=== PATIENT | male | born 1960 | race Caucasian/White ===

== ENCOUNTER → 2021-03-16 10:33 | Outpatient (BNVA) | payer MEDICARE, MEDICAID, SELFPAY | PROVIDERS: PCP Internal Medicine; Visit Provider Hospitalist | DX: J41.0 Simple chronic bronchitis (principal); R91.8 Other nonspecific abnormal finding of lung field; G47.33 Obstructive sleep apnea (adult) (pediatric); Z99.89 Dependence on other enabling machines and devices; F17.200 Nicotine dependence, unspecified, uncomplicated | CPT/HCPCS: 99212 ==

== ENCOUNTER 2021-05-22 12:47 | Outpatient (REF) | payer MEDICARE, MEDICAID, SELFPAY ==
--- NOTE | ~2021-05-22 | CT_ITS ---
EXAMINATION: CT CHEST SCREENING CLINICAL INFORMATION: Nicotine dependence. COMPARISON: CT chest 12/10/2019 TECHNIQUE: Multidetector volumetric CT imaging of the chest is performed without contrast using low dose technique. Additional 2-D coronal and sagittal reformatted images and axial 3-D maximum intensity projection (MIP) images are generated on the CT workstation. This CT examination was performed using dose optimization techniques as appropriate, variously including the following: *Automated exposure control *Adjustment of mA and/or kV according to patient size (this includes techniques or standardized protocols for targeted exams where dose is matched to indication/reason for exam; i.e. extremities or head) *Use of iterative reconstruction technique DLP: 63 mGy-cm FINDINGS: LUNGS: The lungs are expanded and clear of acute process. Previously seen 3 mm nodule left upper lobe is not visualized at this time. No additional pulmonary nodules, mass or consolidation seen. MEDIASTINUM: There is trace left coronary artery calcification. The heart size and great vessels are normal caliber. There is no pericardial effusion. The central trachea and bronchi are widely patent. Thyroid lobes are symmetrical and normal. PLEURA: There is no pleural effusion. No pleural mass or thickening. AXILLA: No lymphadenopathy. UPPER ABDOMEN: The visualized liver, spleen, pancreas, and bilateral adrenal glands are unremarkable. The gallbladder has been surgically removed. OSSEOUS STRUCTURES: No lytic or sclerotic process seen. There is mild ventral spondylosis mid and lower dorsal spine. CT/CT lung screening IMPRESSION: Expanded lungs without any acute process seen. ASSESSMENT: Lung-RADS category 1: Negative RECOMMENDATION: Low-dose annual CT chest exam.
== END 2021-05-22 12:48 | disposition home or self-care (01) ==
LOC: HO.CT 12:47
PROVIDERS: PCP Internal Medicine; Visit Provider Physician Assistant Medical
DX: Z12.2 Encounter for screening for malignant neoplasm of respiratory organs (principal); F17.200 Nicotine dependence, unspecified, uncomplicated
CPT/HCPCS: 71271

== ENCOUNTER 2022-02-19 14:40 | Outpatient (REF) | payer MEDICARE, MEDICAID, SELFPAY ==
--- NOTE | 2022-02-19 17:31 | PFT_ITS ---
Forced vital capacity 61%. FEV1 72%. FEV1/FVC ratio is 89. [id number] 109% and MVV is 46%. Post bronchodilator therapy, there is only minimal improvement in FVC and [id number]. Total lung capacity is 83%. Residual volume 124%. Diffusion capacity 98%. CONCLUSION: There is possible mild restrictive pulmonary disorder. No significant obstructive disorder. However, some improvement after bronchodilator therapy may suggest a mild degree of bronchial asthma/reactive airways. For this, clinical correlation is recommended. MVV is markedly decreased and that is probably effort related and may be due to muscle weakness. For this also, clinical correlation is recommended. MD NANNETTE Gillespie/MODL / [id number]
== END 2022-02-19 14:41 | disposition home or self-care (01) ==
LOC: HO.RESP 14:40
PROVIDERS: PCP Internal Medicine; Visit Provider Internal Medicine Pulmonary Disease
DX: J44.9 Chronic obstructive pulmonary disease, unspecified (principal)
CPT/HCPCS: 94060; 94727; 94729

== ENCOUNTER → 2022-03-02 14:29 | Outpatient (BNVA) | payer MEDICARE, MEDICAID, SELFPAY | PROVIDERS: PCP Internal Medicine; Visit Provider Hospitalist | DX: J41.0 Simple chronic bronchitis (principal); R91.8 Other nonspecific abnormal finding of lung field; G47.33 Obstructive sleep apnea (adult) (pediatric); Z99.89 Dependence on other enabling machines and devices; F17.200 Nicotine dependence, unspecified, uncomplicated | CPT/HCPCS: 99212 ==

== ENCOUNTER → 2022-09-17 09:47 | Outpatient (BNVA) | payer MEDICARE, MEDICAID, SELFPAY | PROVIDERS: PCP Internal Medicine; Visit Provider Hospitalist | DX: J41.0 Simple chronic bronchitis (principal); R91.8 Other nonspecific abnormal finding of lung field; G47.33 Obstructive sleep apnea (adult) (pediatric); F17.210 Nicotine dependence, cigarettes, uncomplicated; Z99.89 Dependence on other enabling machines and devices | CPT/HCPCS: 99212 ==

== ENCOUNTER 2022-12-14 12:56 | Outpatient (REF) | payer MEDICARE, MEDICAID, SELFPAY ==
--- NOTE | ~2022-12-14 | CT_ITS ---
EXAMINATION: CT CHEST SCREENING, LOW DOSE CLINICAL INFORMATION: Nicotine dependence. 35 pack year smoking history, one pack per day, current smoker. COMPARISON: CT chest 05/22/2021. TECHNIQUE: Multidetector volumetric CT imaging of the chest is performed without contrast using low dose technique. Additional 2D coronal and sagittal reformatted images and axial 3D maximum intensity projection (MIP) images are generated on the CT workstation. This CT examination was performed using dose optimization techniques as appropriate, variously including the following: *Automated exposure control *Adjustment of mA and/or kV according to patient size (this includes techniques or standardized protocols for targeted exams where dose is matched to indication/reason for exam; i.e. extremities or head) *Use of iterative reconstruction technique DLP: 130 mGy-cm FINDINGS: LUNGS: The lungs are well-expanded and clear of acute process. There are no pulmonary nodules, mass or consolidation. MEDIASTINUM: The thyroid lobes are symmetric and normal. The central trachea and the bronchi are widely patent. The heart size and the great vessels are normal caliber. There is no pedicle effusion. No abnormal mediastinal or hilar lymph nodes seen. CORONARY ARTERY CALCIFICATION: Mild coronary artery calcifications are present. PLEURA: There is no pleural effusion. No pleural mass or thickening. AXILLA: No abnormal size axillary lymph nodes seen. There is mild asymmetry of the chest wall but otherwise unremarkable. UPPER ABDOMEN: Visualized liver, spleen, pancreas and adrenal glands are unremarkable. There are multiple surgical clips adjacent to the GE junction along the right subhepatic region from previous intervention. OSSEOUS STRUCTURES: There is mild ventral spondylosis mid and lower dorsal spine. CT/CT lung screening IMPRESSION: Unremarkable CT chest exam. ASSESSMENT: Lung-RADS category 2: Benign RECOMMENDATION: Low-dose annual CT chest followup.
== END 2022-12-14 12:57 | disposition home or self-care (01) ==
LOC: HO.CT 12:56
PROVIDERS: PCP Internal Medicine; Visit Provider Physician Assistant Medical
DX: Z12.2 Encounter for screening for malignant neoplasm of respiratory organs (principal); F17.210 Nicotine dependence, cigarettes, uncomplicated
CPT/HCPCS: 71271

== ENCOUNTER 2023-03-18 09:37 | Outpatient (AMB) | payer MEDICARE, MEDICAID, SELFPAY ==
--- NOTE | 2023-03-18 09:56 | A.OFFVIS_ITS ---
Intake Vital Signs 03/18/23 09:58 Height 5 ft 3 in Weight 213 lb BMI 37.7 Pulse 74 Pulse Source Pulse Oximeter Pulse Oximetry (%) 96 Oxygen Delivery Method Room Air Intake Visit Reasons: copd [employer] Worker Required: No Allergies Alphagan Allergy (Severe, Uncoded 03/18/23 09:59) Burning Eyes and Skin Dorzolamide Allergy (Severe, Uncoded 03/18/23 09:59) Anaphylaxis Simbrinzal Allergy (Severe, Uncoded 03/18/23 09:59) Anaphylaxis HPI HPI Comments History of Present Illness Details The patient is a 63-year-old gentleman with a known history of tobacco dependency, COPD and also obstructive sleep apnea. The CPAP therapy has been very effective beneficial. I did download the machine and he is using it for more than 4 hours a night. He has been maintaining AHI around 2. He has been getting supplies for his CPAP regularly without any difficulties. In regards of the smoking his trying to cut down. Is been hard for him to do so. Although, I did review his CT scan of the chest that he had for the lung cancer screening and I explained to him that he had pulmonary nodules. For that reason more reason he is to quit because of the risk of cancer will continue getting worse the more he smokes. He continues uses respiratory therapy with good effect. He has not had to use any prednisone or any antibiotics at this time. 03/18/2023 The patient is here for pulmon mariya follow-up visit. Overall the patient is doing well. He continues uses rescue inhaler as needed. Has not had to use it much. Unfortunately continues to smoke cigarettes. He is not ready to quit completely. He is participating in the lung cancer screening program. He had a CT chest 12/2022. It was read as a RADS 2, benign.. The patient continues uses CPAP every night. Tolerating the higher APAP 10-20. [facility] Medical History (Updated 12/20/22 @ 07:49 by Daylin Pretty PA-C) Nicotine dependence, cigarettes, uncomplicated REYNA on CPAP Pulmonary nodules COPD (chronic obstructive pulmonary disease) Social History (Updated 03/16/21 @ 10:52 by NAZIA Aldana) Patient Tobacco Use Status: Current everyday Tobacco user Tobacco use type: Cigarette Years Smoked: 16 years old Review of Systems Const Denies night sweats ENT Denies change in voice, Denies lip swelling, Denies mouth pain, Reports nasal congestion, Reports nasal discharge and Denies tongue swelling Card Denies chest pain Resp Reports cough GI Denies abdominal pain Musc Denies no additional complaints Neuro Denies Neuro-related abnormal movements Psych Denies no additional complaints Maximino/Lymph Denies easy bleeding and Denies lymphadenopathy Aller/Immun Denies lip swelling and Denies tongue swelling Physical Exam Vital Signs: Last Vital Signs Pulse 74 03/18/23 09:58 Pulse Ox 96 03/18/23 09:58 Oxygen Delivery Method Room Air 03/18/23 09:58 BMI result Body Mass Index 37.7 Const General: alert Neck Neck: Yes normal visual inspection, Yes full ROM and Yes no lymphadenopathy Chest Chest palpation & inspection: normal inspection of the chest Resp Auscultation: no rales, no rhonchi and diminished lung sounds Cardio Rate: regular rate Rhythm: regular rhythm Heart sounds: S1 normal heart sound present and S2 normal heart sound present GI Palpation (GI): Soft to palpation and nontender Auscultation: normal bowel sounds Skin General skin exam: rashes and/or lesions noted Assessment & Plan Assessment & Plan (1) COPD (chronic obstructive pulmonary disease): Comment: Continue respiratory therapy Code(s): J44.9 - Chronic obstructive pulmonary disease, unspecified Qualifiers: COPD type: chronic bronchitis Chronic bronchitis type: simple Qualified Code(s): J41.0 - Simple chronic bronchitis (2) Pulmonary nodules: Comment: Scheduled CT scan to the lung cancer screening program Code(s): R91.8 - Other nonspecific abnormal finding of lung field (3) REYNA on CPAP: Code(s): G47.33 - Obstructive sleep apnea (adult) (pediatric); Z99.89 - Dependence on other enabling machines and devices Plan: Continue CPAP therapy (4) Tobacco dependence: Code(s): F17.200 - Nicotine dependence, unspecified, uncomplicated Plan Short-acting beta agonist as needed tobacco cessation, cutting down lung cancer screening program, 12/2022 continue APAP at night, adjusted pressures 10-20 follow-up in 6 months Orders: Referrals Thoracic Surgery Referral F17.210 - Nicotine dependence, cigarettes, uncomplicated Quality Reporting (2019) Adult ([facility] 138/2/) Smoking risk assessment performed?: Yes Patient Tobacco Use Status: Current everyday Tobacco user Coding Level of Care Code Est Pt Level 4 (90155) Diagnoses Simple chronic bronchitis J41.0 COPD type: chronic bronchitis Chronic bronchitis type: simple Pulmonary nodules R91.8 REYNA on CPAP G47.33; Z99.89 Tobacco dependence F17.200 Time Spent (min) 16
[2023-03-18 09:58] VITALS: PULSE 74; O2SAT 96; BMI 37.7
== END 2023-03-18 10:09 | disposition home or self-care (01) ==
PROVIDERS: PCP Internal Medicine; Visit Provider Hospitalist
DX: J41.0 Simple chronic bronchitis (principal); R91.8 Other nonspecific abnormal finding of lung field; G47.33 Obstructive sleep apnea (adult) (pediatric); Z99.89 Dependence on other enabling machines and devices; F17.200 Nicotine dependence, unspecified, uncomplicated
CPT/HCPCS: 99214

== ENCOUNTER → 2023-03-18 09:37 | Outpatient (BNVA) | payer MEDICARE, MEDICAID, SELFPAY | PROVIDERS: PCP Internal Medicine; Visit Provider Hospitalist | DX: J41.0 Simple chronic bronchitis (principal); R91.8 Other nonspecific abnormal finding of lung field; G47.33 Obstructive sleep apnea (adult) (pediatric); F17.210 Nicotine dependence, cigarettes, uncomplicated; Z99.89 Dependence on other enabling machines and devices | CPT/HCPCS: 99212 ==

== ENCOUNTER 2023-09-20 10:10 | Outpatient (AMB) | payer MEDICARE, MEDICAID, SELFPAY ==
--- NOTE | 2023-09-20 10:26 | MHC.OFFVIS ---
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 The CPAP therapy has been very effective beneficial. I did download the machine and he is using it for more than 4 hours a night. He has been maintaining AHI around 2. He has been getting supplies for his CPAP regularly without any difficulties. In regards of the smoking his trying to cut down. Is been hard for him to do so. Although, I did review his CT scan of the chest that he had for the lung cancer screening and I explained to him that he had pulmonary nodules. For that reason more reason he is to quit because of the risk of cancer will continue getting worse the more he smokes. He continues uses respiratory therapy with good effect. He has not had to use any prednisone or any antibiotics at this time. 03/18/2023 The patient is here for pulmonary follow-up visit. Overall the patient is doing well. He continues uses rescue inhaler as needed. Has not had to use it much. Unfortunately continues to smoke cigarettes. He is not ready to quit completely. He is participating in the lung cancer screening program. He had a CT chest 12/2022. It was read as a RADS 2, benign.. The patient continues uses CPAP every night. Tolerating the higher APAP 10-20. 09/20/2023 the patient is here for a pulmonary follow-up visit. Overall he is doing well. He has using the CPAP every night the CPAP therapy has been affecting beneficial. And his AHI is around 3. The patient unfortunately is getting an adverse effect from the fullface mask where he is getting ulceration of the nasal bridge. I did provide him with an F30 medium mask that he will try to see if this is more comfortable for him so we can avoid further injury to that also. The patient understands that the pressure also continued to get worse if he continues to press on too much. If he does not tolerate the F30 mask we can consider a foam mask which will be little more comfortable. His cutting down smoking which is reassuring and he is also due for CT scan of the chest to the lung cancer screening in the fall of 2023. The patient will continue his current respiratory therapy which includes albuterol. Otherwise patient is doing well in follow-up in 6-8 months. [facility] [place] Medical History (Updated 12/20/22 @ 07:49 by Daylin Pretty PA-C) Nicotine dependence, cigarettes, uncomplicated REYNA on CPAP Pulmonary nodules COPD (chronic obstructive pulmonary disease) Social History (Updated 03/16/21 @ 10:52 by NAZIA Aldana) Patient Tobacco Use Status: Current everyday Tobacco user Tobacco use type: Cigarette Years Smoked: 16 years old Review of Systems Const Denies night sweats ENT Denies change in voice, Denies lip swelling, Denies mouth pain, Reports nasal congestion, Reports nasal discharge and Denies tongue swelling Card Denies chest pain Resp Reports cough GI Denies abdominal pain Musc Denies no additional complaints Neuro Denies Neuro-related abnormal movements Psych Denies no additional complaints Maximino/Lymph Denies easy bleeding and Denies lymphadenopathy Aller/Immun Denies lip swelling and Denies tongue swelling Physical Exam Vital Signs: Last Vital Signs Pulse 57 09/20/23 10:28 Pulse Ox 97 09/20/23 10:28 Oxygen Delivery Method Room Air 09/20/23 10:28 BMI result Body Mass Index 37.4 Const General: alert Neck Neck: Yes normal visual inspection, Yes full ROM and Yes no lymphadenopathy Chest Chest palpation & inspection: normal inspection of the chest Resp Effort & Inspection: normal respiratory effort Auscultation: no rales, no rhonchi and diminished lung sounds Cardio Rate: regular rate Rhythm: regular rhythm Heart sounds: S1 normal heart sound present and S2 normal heart sound present GI Palpation (GI): Soft to palpation and nontender Auscultation: normal bowel sounds Skin General skin exam: no rashes or lesions noted Extrem General: Yes no clubbing, cyanosis or edema Quality Reporting (2019) Adult ([facility] 138/2/22/69) Smoking risk assessment performed?: Yes Patient Tobacco Use Status: Current everyday Tobacco user Assessment & Plan Assessment & Plan (1) COPD (chronic obstructive pulmonary disease): Comment: Continue respiratory therapy Code(s): J44.9 - Chronic obstructive pulmonary disease, unspecified Category: Medical Qualifiers: COPD type: chronic bronchitis Chronic bronchitis type: simple Qualified Code(s): J41.0 - Simple chronic bronchitis (2) Pulmonary nodules: Comment: Scheduled CT scan to the lung cancer screening program Code(s): R91.8 - Other nonspecific abnormal finding of lung field Category: Medical (3) REYNA on CPAP: Code(s): G47.33 - Obstructive sleep apnea (adult) (pediatric); Z99.89 - Dependence on other enabling machines and devices Category: Medical Plan: Continue CPAP therapy (4) Tobacco dependence: Code(s): F17.200 - Nicotine dependence, unspecified, uncomplicated Category: Medical Plan Short-acting beta agonist as needed tobacco cessation, cutting down lung cancer screening program, 12/2023 continue APAP at night, adjusted pressures 10-20 follow-up in 6-8 months Coding Level of Care Code Est Pt Level 4 (90570) Diagnoses Simple chronic bronchitis J41.0 COPD type: chronic bronchitis Chronic bronchitis type: simple Pulmonary nodules R91.8 REYNA on CPAP G47.33; Z99.89 Tobacco dependence F17.200 Time Spent (min) 16
[2023-09-20 10:28] VITALS: PULSE 57; O2SAT 97; BMI 37.4
== END 2023-09-20 10:42 | disposition home or self-care (01) ==
PROVIDERS: PCP Internal Medicine; Visit Provider Hospitalist
DX: J41.0 Simple chronic bronchitis (principal); R91.8 Other nonspecific abnormal finding of lung field; G47.33 Obstructive sleep apnea (adult) (pediatric); Z99.89 Dependence on other enabling machines and devices; F17.200 Nicotine dependence, unspecified, uncomplicated
CPT/HCPCS: 99214

== ENCOUNTER → 2023-09-20 10:10 | Outpatient (BNVA) | payer MEDICARE, MEDICAID, SELFPAY | PROVIDERS: PCP Internal Medicine; Visit Provider Hospitalist | DX: J41.0 Simple chronic bronchitis (principal); R91.8 Other nonspecific abnormal finding of lung field; G47.33 Obstructive sleep apnea (adult) (pediatric); F17.200 Nicotine dependence, unspecified, uncomplicated; Z99.89 Dependence on other enabling machines and devices | CPT/HCPCS: 99212 ==

== ENCOUNTER 2024-01-09 15:01 | Outpatient (REF) | payer MEDICARE, MEDICAID, SELFPAY ==
--- NOTE | ~2024-01-09 | CT_ITS ---
EXAMINATION: CT LOW-DOSE SCREENING CHEST WITHOUT CONTRAST CLINICAL INFORMATION: Nicotine dependence, cigarettes, uncomplicated. The patient is a current smoker with a 35 pack-year history of smoking. COMPARISON: CT chest December 14, 2022. TECHNIQUE: Multidetector volumetric CT imaging of the chest is performed on a Siemens SOMATOM Definition scanner without contrast using low dose technique. Additional 2D coronal and sagittal reformatted images and axial 3D maximum intensity projection (MIP) images are generated on the CT workstation. This CT examination was performed using dose optimization techniques as appropriate, variously including the following: *Automated exposure control *Adjustment of mA and/or kV according to patient size (this includes techniques or standardized protocols for targeted exams where dose is matched to indication/reason for exam; i.e. extremities or head) *Use of iterative reconstruction technique TOTAL EXAM DLP: 61 mGy-cm. CTDIvol: 1.91 mGy. FINDINGS: PULMONARY NODULES: No suspicious pulmonary nodules. LUNGS: Lungs bilaterally symmetrically expanded. No significant emphysema. Some mild bronchial thickening. No effusion or pneumothorax. Central airways patent. MEDIASTINUM: No mediastinal, hilar or axillary adenopathy or free fluid collection. CORONARY ARTERY CALCIFICATION: Moderate. THYROID GLAND: Unremarkable to the extent seen. CARDIOVASCULAR STRUCTURES: Aortic and heart size normal. No pericardial effusion. CHEST WALL/AXILLA: Unremarkable. UPPER ABDOMEN: Multiple surgical clips around the cosme hepatis and gastrohepatic ligament. OSSEOUS STRUCTURES: No suspicious focal findings. CT/CT lung screening IMPRESSION: No findings seen suspicious for malignancy. ASSESSMENT: 1. Lung-RADS Category 1: Negative. There are no nodules or there are definitely benign nodules. N/A 2. Lung-RADS Category S: Negative. There are no clinically significant or potentially clinically significant findings not related to the lungs requiring urgent additional evaluation. RECOMMENDATION: Continued routine annual low-dose CT lung screening in 1 year is recommended. An order for CT CHEST LOW DOSE CANCER SCREENING ([id number]) can be placed. Electronically signed by: Martin Cooney MD 02/28/2024 05:11 PM [facility] [place]
== END 2024-01-09 15:02 | disposition home or self-care (01) ==
LOC: HO.CT 15:01
PROVIDERS: PCP Internal Medicine; Visit Provider Physician Assistant Medical
DX: Z12.2 Encounter for screening for malignant neoplasm of respiratory organs (principal); F17.210 Nicotine dependence, cigarettes, uncomplicated
CPT/HCPCS: 71271

== ENCOUNTER 2024-05-25 09:19 | Outpatient (AMB) | payer MEDICARE, MEDICAID, SELFPAY ==
--- NOTE | 2024-05-25 09:23 | MHC.OFFVIS ---
Vital Signs 05/25/24 09:26 Height 5 ft 3 in Weight 211 lb 10.3 oz BMI 37.5 BP 132/76 Blood Pressure Location Rt brachial Position Sitting Pulse 63 Pulse Source Pulse Oximeter Pulse Oximetry (%) 98 Oxygen Delivery Method Room Air Intake Visit Reasons: COPD Allergies Alphagan Allergy (Severe, Uncoded 05/25/24 09:31) Burning Eyes and Skin Dorzolamide Allergy (Severe, Uncoded 05/25/24 09:31) Anaphylaxis Simbrinzal Allergy (Severe, Uncoded 05/25/24 09:31) Anaphylaxis HPI Comments Details: The patient is a 64-year-old gentleman with a known history of tobacco dependency, COPD and also obstructive sleep apnea. The CPAP therapy has been very effective beneficial. I did download the machine and he is using it for more than 4 hours a night. He has been maintaining AHI around 2. He has been getting supplies for his CPAP regularly without any difficulties. In regards of the smoking his trying to cut down. Is been hard for him to do so. Although, I did review his CT scan of the chest that he had for the lung cancer screening and I explained to him that he had pulmonary nodules. For that reason more reason he is to quit because of the risk of cancer will continue getting worse the more he smokes. He continues uses respiratory therapy with good effect. He has not had to use any prednisone or any antibiotics at this time. 03/18/2023 The patient is here for pulmonary follow-up visit. Overall the patient is doing well. He continues uses rescue inhaler as needed. Has not had to use it much. Unfortunately continues to smoke cigarettes. He is not ready to quit completely. He is participating in the lung cancer screening program. He had a CT chest 12/2022. It was read as a RADS 2, benign.. The patient continues uses CPAP every night. Tolerating the higher APAP 10-20. 09/20/2023 the patient is here for a pulmonary follow-up visit. Overall he is doing well. He has using the CPAP every night the CPAP therapy has been affecting beneficial. And his AHI is around 3. The patient unfortunately is getting an adverse effect from the fullface mask where he is getting ulceration of the nasal bridge. I did provide him with an F30 medium mask that he will try to see if this is more comfortable for him so we can avoid further injury to that also. The patient understands that the pressure also continued to get worse if he continues to press on too much. If he does not tolerate the F30 mask we can consider a foam mask which will be little more comfortable. His cutting down smoking which is reassuring and he is also due for CT scan of the chest to the lung cancer screening in the fall of 2023. The patient will continue his current respiratory therapy which includes albuterol. Otherwise patient is doing well in follow-up in 6-8 months. 05/25/2024 the patient is here for pulmonary follow-up visit. Overall the patient has been doing well. He has been using his CPAP with very good effect. The therapy has been affecting beneficial. He does try to use it more than 4 hours a night. He does use a nasal mask and sometimes a fullface mask. Does have significant air leakage. I do believe that the new F 40 mask be a better fit for him. Will request of his his current DME company. As far as his lung cancer screening program his last CT scan was back in the fall he will get another CT scan then. He is still smoking. He knows he needs to quit. He is not ready to quit at this time. The patient has a rescue inhaler use it at times. Right now he is doing well he does not require. [facility] Medical History (Updated 12/20/22 @ 07:49 by Daylin Pretty PA-C) Nicotine dependence, cigarettes, uncomplicated REYNA on CPAP Pulmonary nodules COPD (chronic obstructive pulmonary disease) Social History (Updated 05/25/24 @ 09:31 by Lois Musa [facility]) Patient Tobacco Use Status: Current everyday Tobacco user Tobacco use type: Cigarette Cigarette Packs Per Day: 0.5 Cigarettes Per Day: 10 Years Smoked: 16 years old Review of Systems Const Denies night sweats ENT Denies change in voice, Denies lip swelling, Denies mouth pain, Reports nasal congestion, Reports nasal discharge and Denies tongue swelling Card Denies chest pain Resp Reports cough GI Denies abdominal pain Musc Denies no additional complaints Neuro Denies Neuro-related abnormal movements Psych Denies no additional complaints Maximino/Lymph Denies easy bleeding and Denies lymphadenopathy Aller/Immun Denies lip swelling and Denies tongue swelling Physical Exam Vital Signs: Last Vital Signs Pulse 63 05/25/24 09:26 BP 132/76 05/25/24 09:26 Pulse Ox 98 05/25/24 09:26 Oxygen Delivery Method Room Air 05/25/24 09:26 BMI result Body Mass Index 37.5 Const General: alert Neck Neck: Yes normal visual inspection, Yes full ROM and Yes no lymphadenopathy Chest Chest palpation & inspection: normal inspection of the chest Resp Effort & Inspection: normal respiratory effort Auscultation: no rales, no rhonchi and diminished lung sounds Cardio Rate: regular rate Rhythm: regular rhythm Heart sounds: S1 normal heart sound present and S2 normal heart sound present GI Palpation (GI): Soft to palpation and nontender Auscultation: normal bowel sounds Skin General skin exam: no rashes or lesions noted Extrem General: Yes no clubbing, cyanosis or edema Quality Reporting (2019) Adult ([facility] ) Smoking risk assessment performed?: Yes Patient Tobacco Use Status: Current everyday Tobacco user Assessment & Plan Assessment & Plan (1) COPD (chronic obstructive pulmonary disease): Comment: Continue respiratory therapy Code(s): J44.9 - Chronic obstructive pulmonary disease, unspecified Category: Medical Qualifiers: COPD type: chronic bronchitis Chronic bronchitis type: simple Qualified Code(s): J41.0 - Simple chronic bronchitis (2) Pulmonary nodules: Comment: Scheduled CT scan to the lung cancer screening program Code(s): R91.8 - Other nonspecific abnormal finding of lung field Category: Medical (3) REYNA on CPAP: Code(s): G47.33 - Obstructive sleep apnea (adult) (pediatric); Z99.89 - Dependence on other enabling machines and devices Category: Medical Plan: Continue CPAP therapy (4) Tobacco dependence: Code(s): F17.200 - Nicotine dependence, unspecified, uncomplicated Category: Medical Plan Short-acting beta agonist as needed tobacco cessation, cutting down lung cancer screening program, 12/2024 continue APAP at night, adjusted pressures 10-20 to 9-16 follow-up in 8-12 months Coding Level of Care Code Est Pt Level 4 (35524) Diagnoses Simple chronic bronchitis J41.0 COPD type: chronic bronchitis Chronic bronchitis type: simple Pulmonary nodules R91.8 REYNA on CPAP G47.33; Z99.89 Tobacco dependence F17.200 Time Spent (min) 16
[2024-05-25 09:26] VITALS: BP 132/76; PULSE 63; O2SAT 98; BMI 37.5
== END 2024-05-25 09:57 | disposition home or self-care (01) ==
PROVIDERS: PCP Internal Medicine; Visit Provider Hospitalist
DX: J41.0 Simple chronic bronchitis (principal); R91.8 Other nonspecific abnormal finding of lung field; G47.33 Obstructive sleep apnea (adult) (pediatric); Z99.89 Dependence on other enabling machines and devices; F17.200 Nicotine dependence, unspecified, uncomplicated
CPT/HCPCS: 99214

== ENCOUNTER → 2024-05-25 09:19 | Outpatient (BNVA) | payer MEDICARE, MEDICAID, SELFPAY | PROVIDERS: PCP Internal Medicine; Visit Provider Hospitalist | DX: J41.0 Simple chronic bronchitis (principal); R91.8 Other nonspecific abnormal finding of lung field; G47.33 Obstructive sleep apnea (adult) (pediatric); F17.210 Nicotine dependence, cigarettes, uncomplicated; Z99.89 Dependence on other enabling machines and devices | CPT/HCPCS: 99212 ==

== ENCOUNTER 2025-01-26 10:09 | Outpatient (REF) | payer MEDICARE, MEDICAID, SELFPAY ==
--- OUTSIDE RECORDS SUMMARY | 2025-01-21 09:45 | XMS_ITS | Encounter Summary ---
Author Organization [facility] Address [address] [place] [address] Care Team Providers Care Rehabilitation Attendant Name Role Phone Tatyana Marino MD Primary Care Provider [phone] Reason for Visit * Reason Comments Consult DM Foot Care * Consultation (Routine) - Closed Specialty Diagnoses / Procedures Referred By Contact Referred To Contact Podiatry / Orthopaedic Surgery Diagnoses Encounter for diabetic foot exam ([facility] V24, [facility] V28) Tatyana Marino MD [address] [place] [address] Phone: tel: Lukasz Smith DPM [address] [address] Phone: tel: fax: Referral ID Status Reason Start Date Expiration Date V isits Requested Visits Authorized [id number] Closed Specialty Services Required 11/25/2024 11/25/2025 1 1 Encounter Details Date Type Department Care Team (Late st Contact Info) Description 01/21/2025 9:45 AM EDT Consult Orthopedic Surgery - [place] [address] [address] Lukasz Smith DPM [address] [address] Dermatophytosis of nail (Primary Dx); Pain in toe of left foot; Pain in toe of right foot; Corns and callosities; Diabetic mononeuropathy simplex ([facility] V24, [facility] V28); Type II diabetes mellitus with peripheral circulatory disorder ([facility] V24, [facility] V28); Metatarsalgia of both feet Social History Tobacco Use Types Packs/Day Years Used Date Smoking Tobacco: Every Day Cigarettes Smokeless Tobacco: Never Alcohol Use Standard Drinks/Week Comments Yes 3.3 (1 standard drink = 0.6 oz p ure alcohol) Sex and Gender Information Value Date Recorded Sex Assigned at Not on file Legal Sex Male 11:34 PM EST Gender Identity Not on file Sexual Orientation Not on file documented as of this encounter Progress Notes * Lukasz Smith DPM - 01/21/2025 9:45 AM EDT Last PCP visit:Referring MD: Tatyana Marino MD 08/21/2024 IDENTIFIER: Vargas is a 64 y.o. year old male who presents for consultation. CC: Foot pain HPI: Vargas is a 64 y.o. year old male presents complaining o of thickened fungal nails and skin with numbness and tingling occasion to his feet he is a type II diabetic endorses that he has very thick calluses and balls both feet as well as thick nails make them to walk he is to see Dr. Zambrano who recently passed currently on gabapentin with some improvement of his neuritis numbness and tingling at night ROS: GENERAL: Pt denies nausea, fever, vomiting, chills, or shortness of breath. Pt in NAD. CARDIOLOGY: pt denies chest pain, palpitations LUNGS: pt denies shortness of breath MUSCULOSKELETAL: See HPI, otherwise no joint pain or swelling, back pain, or muscle pain. SKIN: see HPI, otherwise no lesions, rash or itching NEURO: No persistent headache, weakness or numbness The remainder of the review of systems is noncontributory PAST MEDICAL HISTORY: Problem List[1] SOCIAL HISTORY: Social History Tobacco Use Smoking status: Every Day Current packs/day: 0.50 Types: Cigarettes Smokeless tobacco: Never Substance Use Topics Alcohol use: Yes Alcohol/week: 3.3 standard drinks of alcohol ACTIVE MEDICATIONS: Medications Taking[2] ALLERGIES: Allergies[3] PHYSICAL EXAM: Visit Vitals Smoking Status Every Day PODIATRIC EXAMINATION: GENERAL: Patient appears well nourished, with NAD. VASCULAR: Dorsalis pedis pulses are 2/4 bilaterally and Posterior tibial pulses are 0/4 bilaterally. Capillary filling time within normal limits the digits. No pallor on elevation or rubor on dependency. No varicosities. Denies rest pain or claudication pain. NEUROLOGICAL: Sharp/dull sensation intact, protective sensation intact 10/10 with Ipswitch touch test bilaterally, vibratory sensation intact to the tibial tuberosity. ORTHOPEDIC: Good muscle strength 5/5 of all flexors and extensors. Dorsi flexion of ankle ,10 degrees, plantar flexion WNL. No muscle atrophy. DERMATOLOGICAL:. Toenails: Left Toenail(s) 1-5: subungual debris, discoloration, hypertrophic, elongation, mycotic appearance, onychomycosis, pain and thickening. Right Toenail(s) 1-5: subungual debris, discoloration, hypertrophic, elongation, mycotic appearance, onychomycosis, pain and thickening. Annular scaling bilateral feet moccasin distribution Skin thinning texture shiny appearance diffuse hyperpigmentation bilaterally pedal hair decreased Hyperkeratotic tissue subfifth metatarsal bilaterally BIOMECHANICS: Ankle ROM WNL, STJ ROM wnl, MTJ ROM wnl, 1st MPJ ROM wnl. IMAGING: IMPRESSION: 1. Dermatophytosis of nail 2. Pain in toe of left foot 3. Pain in toe of right foot 4. Corns and callosities 5. Diabetic mononeuropathy simplex (CMS/HCC V24, CMS/HCC V28) 6. Type II diabetes mellitus with peripheral circulatory disorder (CMS/HCC V24, CMS/HCC V28) 7. Metatarsalgia of both feet PLAN: Pt was seen and examined, history reviewed. Discussed with patient regarding proper glucose control, exercise, and diet. Explained to patient proper shoe gear, and importance of daily foot checks. I reviewed neuropathy and why it occurs in diabetics. I educated the patient on proper blood sugar control and the importance of an HgBA1c of less than 7.0%. I reviewed the signs and symptoms of neuropathy with the patient Pt to return for another evaluation in 3 months. Debridement of mycotic toenails 6-10: Verbal informed consent was obtained from the patient. Greater than 6 nails were aseptically debrided in thickness and length with nail nippers Hyperkeratotic tissue debrided pared with a number #15 scalpel blade x2 Lukasz Smith DPM [1] There is no problem list on file for this patient. [2] Outpatient Medications Marked as Taking for the 01/21/25 encounter (Consult) with Lukasz Smith DPM Medication Sig Dispense Refill acetaminophen (TYLENOL 8 HOUR) 650 mg 8 hr tablet TAKE TWO TABLETS BY MOUTH EVERY 12 HOURS NEEDED FOR PAIN ammonium lactate (AMLACTIN) 12 % cream bisacodyL (DULCOLAX) 5 mg EC tablet Take 2 tablets by mouth right before beginning bowel prep. See instructions provided by the office 2 tablet 0 cloNIDine (CATAPRES) 0.1 mg tablet fenofibrate (LOFIBRA) 160 mg tablet gabapentin (NEURONTIN) 400 mg capsule glipiZIDE (GLUCOTROL) 10 mg tablet Take by mouth. levothyroxine (SYNTHROID, LEVOTHROID) 100 mcg tablet Take 1 tablet (100 mcg total) by mouth. loratadine (CLARITIN) 10 mg tablet Take 1 tablet (10 mg total) by mouth 1 (one) time each day if needed. metFORMIN XR (GLUCOPHAGE-XR) 750 mg 24 hr tablet pioglitazone (ACTOS) 15 mg tablet polyethylene glycol (Golytely) 236-22.74-6.74 -5.86 gram solution Take 4L by mouth once for one dose. May substitue any PEG. Starting at 6PM the night before your procedure drink 1 8oz glasses at your own pace until you complete half of the gallon. Finish 2nd half of the gallon 5 hours before your procedure. 4000 mL 0 timolol (TIMOPTIC) 0.5 % ophthalmic solution Administer 1 drop into the left eye 2 (two) times a day. traMADoL (ULTRAM) 50 mg tablet Take 1 tablet (50 mg total) by mouth. verapamil SR (CALAN-SR) 180 mg CR tablet [3] No Known Allergies documented in this encounter Plan of Treatment Upcoming Encounters Date Type Department Care Team (Late st Contact Info) Description 04/27/2025 10:00 AM EST Office Visit Orthopedic Surgery - [place] [address] [address] Lukasz Smith DPM [address] [address] documented as of this encounter Visit Diagnoses Diagnosis Dermatophytosis of nail- Primary Pain in toe of left foot Pain in soft tissues of limb Pain in toe of right foot Pain in soft tissues of limb Corns and callosities Diabetic mononeuropathy simplex ([facility] V24, [facility] V28) Type II or unspecified type diabetes mellitus with neurological manifestations, not stated as uncontrolled Type II diabetes mellitus with peripheral circulatory disorder ([facility] V24, [facility] V28) Type II or unspecified type diabetes mellitus with peripheral circulatory disorders, not stated as uncontrolled Metatarsalgia of both feet documented in this encounter Historical Medications * This list may reflect changes made after this encounter. verapamil SR (CALAN-SR) 180 mg CR tablet 01/12/2025 timolol (TIMOPTIC) 0.5 % ophthalmic solution Administer 1 drop into the left eye 2 (two) times a day. 12/02/2024 traMADoL (ULTRAM) 50 mg tablet Take 1 tablet (50 mg total) by mouth. pioglitazone (ACTOS) 15 mg tablet 01/12/2025 metFORMIN XR (GLUCOPHAGE-XR) 750 mg 24 hr tablet 01/12/2025 loratadine (CLARITIN) 10 mg tablet Take 1 tablet (10 mg total) by mouth 1 (one) time each day if needed. levothyroxine (SYNTHROID, LEVOTHROID) 100 mcg tablet Take 1 tablet (100 mcg total) by mouth. 12/03/2018 glipiZIDE (GLUCOTROL) 10 mg tablet Take by mouth. gabapentin (NEURONTIN) 400 mg capsule 01/12/2025 fenofibrate (LOFIBRA) 160 mg tablet 01/12/2025 cloNIDine (CATAPRES) 0.1 mg tablet 08/25/2024 ammonium lactate (AMLACTIN) 12 % cream 01/12/2025 acetaminophen (TYLENOL 8 HOUR) 650 mg 8 hr tablet TAKE TWO TABLETS BY MOUTH EVERY 12 HOURS NEEDED FOR PAIN 01/10/2025 added in this encounter Orders Outpatient Referral Count Last Ordered Date Fir st Ordered Date AMB REFERRAL TO PODIATRY 1 01/21/2025 documented in this encounter Care Teams Rehabilitation Attendant Relationship Specialty Start Date End Date Tatyana Marino MD [address] [place] [address] PCP - General 06/01/09 documented as of this encounter
--- NOTE | ~2025-01-26 | CT_ITS ---
EXAMINATION: CT LUNG SCREENING HISTORY: F17.210 - Nicotine dependence, cigarettes, uncomplicated TECHNIQUE: Low dose axial images were obtained from the sternal notch to upper abdomen without IV contrast per standard departmental protocol. Sagittal and coronal reformatted images were also obtained and reviewed. One or more of the following techniques was used for dose reduction: Automated exposure control, adjustment of the mA and/or kV according to patient size, use of iterative reconstruction technique. DLP: 72 mGy-cm COMPARISON: Comparison is made with the prior examination dated 01/09/2024. FINDINGS: Lung nodules: There are ill-defined 4-5 mm nodules in the right lower lobe (series 4, images 59, 65, 70, and 71) which may be inflammatory in nature. Emphysema: none Coronary Calcification: moderate Aortic Arch Calcification: none Potentially Significant Incidentals : none Additional Chest Findings: There is no pleural or pericardial effusion. No mediastinal or axillary lymphadenopathy is identified. Visualized upper abdomen: The visualized portions of the liver, spleen, and adrenals have an unremarkable unenhanced appearance. CT/CT lung screening IMPRESSION: Scattered ill-defined right and 5 mm nodules in the right lower lobe which may be inflammatory in nature. Six-month follow-up low-dose chest CT is recommended. LUNG-RADS ASSESSMENT: MANAGEMENT: Continue annual screening with LDCT in 12 months Category S: N/A Electronically signed by: Francisco Henderson MD 01/26/2025 11:21 AM EDT
--- OUTSIDE RECORDS SUMMARY | 2025-01-26 11:46 | XMS_ITS | Clinical Summary ---
Demographics Address [address] [facility] [address] [place] [address] Home Phone Mobile Phone Email Address Preferred Language en Marital Status Single Adventist Affiliation Unknown Race White Ethnic Group Not or Lati no Author Organization [facility] [address] [facility] [address] Address [address] [place] [address] Phone Care Team Providers Care Airline Manager Name Role Phone Tatyana Marino MD Primary Care Provider [phone] Allergies No known active allergies Medications polyethylene glycol (Golytely) 236-22.74-6.74 -5.86 gram solution Take 4L by mouth once for one dose. May substitue any PEG. Starting at 6PM the night before your procedure drink 1 8oz glasses at your own pace until you complete half of the gallon. Finish 2nd half of the gallon 5 hours before your procedure. 4000 mL 5 Active bisacodyL (DULCOLAX) 5 mg EC tablet Take 2 tablets by mouth right before beginning bowel prep. See instructions provided by the office 2 tablet 5 Active acetaminophen (TYLENOL 8 HOUR) 650 mg 8 hr tablet TAKE TWO TABLETS BY MOUTH EVERY 12 HOURS NEEDED FOR PAIN 5 Active ammonium lactate (AMLACTIN) 12 % cream 5 Active cloNIDine (CATAPRES) 0.1 mg tablet 5 Active fenofibrate (LOFIBRA) 160 mg tablet 5 Active gabapentin (NEURONTIN) 400 mg capsule 5 Active glipiZIDE (GLUCOTROL) 10 mg tablet Take by mouth. Activ e levothyroxine (SYNTHROID, LEVOTHROID) 100 mcg tablet Take 1 tablet (100 mcg total) by mouth. 9 Active loratadine (CLARITIN) 10 mg tablet Take 1 tablet (10 mg total) by mouth 1 (one) time each day if needed. Active metFORMIN XR (GLUCOPHAGE-XR) 750 mg 24 hr tablet 5 Active pioglitazone (ACTOS) 15 mg tablet 5 Active traMADoL (ULTRAM) 50 mg tablet Take 1 tablet (50 mg total) by mouth. Active timolol (TIMOPTIC) 0.5 % ophthalmic solution Administer 1 drop into the left eye 2 (two) times a day. 5 Active verapamil SR (CALAN-SR) 180 mg CR tablet 5 Active Active Problems No known active problems Encounters Date Type Department Care Team Description 01/21/2025 9:45 AM EDT Consult Orthopedic Surgery [address] [address] Lukasz Smith, DPM Dermatophytosis of nail (Primary Dx); Pain in toe of left foot; Pain in toe of right foot; Corns and callosities; Diabetic mononeuropathy simplex (CMS/[facility] V24, CMS/[facility] V28); Type II diabetes mellitus with peripheral circulatory disorder (CMS/[facility] V24, CMS/[facility] V28); Metatarsalgia of both feet from Last 3 Months Surgical History Surgery Date Site/Laterality Comments LEG SURGERY 1985 PROCEDURE: HISTORICAL LEG SURGERY; COMMENT: Bilateral fx repairs Medical History Medical History Date Comments Hypertension DX:Hypertension Diabetes mellitus type 2, uncomplicated (CMS/[facility] V24, CMS/[facility] V28) 02/26/2017 DX:Diabetes mellitus type 2, uncomplicated ([facility]) Hyperlipidemia 02/26/2017 DX:Hyperlipidemi a Hypothyroidism 02/26/2017 DX:Hypothyroidis m Social History Tobacco Use Types Packs/Day Years Used Date Smoking Tobacco: Every Day Cigarettes Smokeless Tobacco: Never Alcohol Use Standard Drinks/Week Comments Yes 3.3 (1 standard drink = 0.6 oz p ure alcohol) Sex and Gender Information Value Date Recorded Sex Assigned at Not on file Legal Sex Male 11:34 PM EST Gender Identity Not on file Sexual Orientation Not on file Obstetrics History Last Filed Vital Signs Vital Sign Reading Time Taken Comments Blood Pressure 100/82 08/17/2024 8:25 AM EDT Pulse 62 08/17/2024 8:25 AM EDT Temperature 36.4 C (97.5 F) 08/17/2024 8:25 AM EDT Respiratory Rate 20 08/17/2024 8:25 AM EDT Oxygen Saturation 99% 08/17/2024 8:25 AM EDT Inhaled Oxygen Concentration - - Weight 79.4 kg (175 lb) 08/17/2024 8:25 AM EDT Height 162.6 cm (5' 4 ) 08/17/2024 8:25 AM EDT Body Mass Index 30.04 08/17/2024 8:25 AM EDT Plan of Treatment Upcoming Encounters Date Type Department Care Team (Late st Contact Info) Description 04/27/2025 10:00 AM EST Office Visit Orthopedic Surgery - [place] [address] [address] Lukasz Smith, DPM [address] [address] Health Maintenance Due Date Last Done Comments Diabetes: Annual Foot Exam 1972 Diabetes: Annual Retina Eye Exam 1972 DTaP,Tdap,and Td Vaccines (1 - Tdap) 1981 Pneumococcal Vaccine: 50+ Years (1 of 2 - PCV) 1981 Zoster Vaccines (1 of 2) 2012 RSV Immunization Adult Patients (1 - Risk 60-74 years 1-dose series) 2022 Cholesterol Screening (Lipid Panel) 03/18/2022 HIV Screening 03/18/2022 Hepatitis C Screening 03/18/2022 Medicare Annual Wellness Visit 03/18/2022 Social Influencers of Health Screening 03/18/2022 Diabetes: Annual Urine Albumin-Creatinine Ratio (uACR) 03/31/2022 Diabetes: Blood Sugar Contro l Test (HGBA1C) 03/31/2022 Depression Screening 04/15/2024 COVID-19 Vaccine (2 - 2024-2 6 season) 2024 08/22/2020 Influenza Vaccine (#1) 2024 Diabetes: Annual GFR (Glomerular Filtration Rate) 08/17/2025 08/17/2024 Hypertension/CHF/CAD Annual BMP Blood Test 08/17/2025 08/17/2024 Colorectal Cancer Screening: Colonoscopy 08/21/2034 08/21/2024, 08/11/2024 HIB Vaccines Aged Out No longer eligi ble based on patient's age to complete this topic HPV Vaccines Aged Out No longer eligi ble based on patient's age to complete this topic Hepatitis A Vaccines Aged Out No long er eligible based on patient's age to complete this topic Hepatitis B Vaccines Aged Out No long er eligible based on patient's age to complete this topic IPV Vaccines Aged Out No longer eligi ble based on patient's age to complete this topic MMR Vaccines Aged Out No longer eligi ble based on patient's age to complete this topic Meningococcal ACWY Vaccine Aged Out N o longer eligible based on patient's age to complete this topic Meningococcal B Vaccine Aged Out No l onger eligible based on patient's age to complete this topic RSV Immunization Patients Under 20 months Aged Out No longer eligible b ased on patient's age to complete this topic Varicella Vaccines Aged Out No longer eligible based on patient's age to complete this topic Procedures Procedure Name Priority Date/Time Associated Diagnosis Comments COLONOSCOPY Routine 08/21/2024 2:19 PM EDT BASIC METABOLIC PANEL STAT 08/17/2024 8:29 AM EDT from Last 3 Months or Most Recently Relevant to Health Maintenance Results * COLONOSCOPY (08/21/2024 2:19 PM EDT) Anatomical Region Laterality Modality Endoscopy us Historical Provider GI~PROCEDURE ORDERABLES F inal Result * (ABNORMAL) Basic metabolic panel (08/17/2024 8:29 AM EDT) Sodium 144 133 - 145 mmol/L LAB CHEMISTRY METHOD 08/17/2024 9:28 AM EDT [facility] Potassium 4.5 3.5 - 5.5 mmol/L LAB CHEMISTRY METHOD 08/17/2024 9:28 AM T [facility] Chloride 113(H) 96 - 110 mmol/L LAB CHEMISTRY METHOD 08/17/2024 9:28 AM [facility] CO2 26 21 - 32 mmol/L LAB CHEMISTRY METHOD 08/17/2024 9:28 AM [facility] Anion Gap 5 3 - 11 LAB CHEMISTRY METHOD 08/17/2024 9:28 AM [facility] Glucose 104(H) 70 - 100 mg/dL LAB CHEMISTRY METHOD 08/17/2024 9:28 AM [facility] BUN 22 5 - 25 mg/dL LAB CHEMISTRY METHOD 08/17/2024 9:28 AM [facility] Creatinine 0.62(L) 0.70 - 1.30 mg/dL LAB CHEMISTRY METHOD 08/17/2024 9:28 AM [facility] eGFR 108 >=60 mL/min/1. 73m2 LAB CHEMISTRY METHOD 08/17/2024 9:28 AM [facility] Comment:Calculation based on the Chronic Kidney Disease Epidemiology Collaboration (CKD-EPI) equation refit without adjustment for race. 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
--- OUTSIDE RECORDS SUMMARY | 2025-01-26 11:46 | XMS_ITS | Encounter Summary ---
Author Organization [facility] Address [address] [place] [address] Care Team Providers Care Lunchroom Worker Name Role Phone Tatyana Marino MD Primary Care Provider [phone] Encounter Details Date Type Department Care Team (Late st Contact Info) Description 08/12/[address] [facility] - [facility] [address] [facility] [place] [address] Carolann Fleming MD [address] [facility] [address] [place] [address] Encounter for screening for malignant neoplasm of colon Social History Tobacco Use Types Packs/Day Years [...] as of this encounter Progress Notes * Carolann Fleming MD - 08/12/2024 9:12 AM EDT Please let patient know that the colon polyps were benign. Repeat colonoscopy in 10 years. documented in this encounter Plan of Treatment Upcoming Encounters Date Type Department Care Team (Late Contact Info) Description 04/27/2025 10:00 AM EST Office Visit Orthopedic Surgery [facility] [address] [facility] [address] [place] [id number] Lukasz Smith, DPM [address] [place] [address] documented as of this encounter Procedures Procedure Name Priority Date/Time Associated Diagnosis Comments TISSUE EXAM Routine 08/11/2024 Encounter for screening for malignant neoplasm of colon documented in this encounter Results * Tissue Exam (08/11/2024) Final Diagnosis A. Large Intestine, Sigmoid Colon, polyps x2: - Hyperplastic polyp. B. Large Intestine, Left/Descending Colon, polyp: - No colonic tissue present for evaluation. Note: Part B, the specimen did not survive tissue processing. 08/13/2024 8:[address] [facility] Clinical Information Screening for colorectal malignant neoplasm Polyp 08/13/2024 8:[address] [facility] Gross Description A. Large Intestine, Sigmoid Colon, polyp x2: Labeled sigmoid colon polyp x 2 . Received in formalin are two soft to rubbery, hamlin-brown tissue fragments, approximately measuring 0.25 cm and 0.4 cm in greatest diameters, which are inked green at their bases, admixed with fecal/food debris. The specimen is wrapped in paper and submitted in toto in one cassette, two pieces, multiple levels. B. Large Intestine, Left/Descending Colon, polyp: Labeled descending colon polyp . Received in formalin, are three irregular soft to rubbery, hamlin tissue fragments, approximately ranging from 0.1 cm to 0.15 cm in greatest diameters, which are wrapped in paper and submitted in toto in one cassette, three pieces, multiple levels. Please note: Small tissue fragments may not survive processing. dvb/hs/DG 08/13/2024 8:[address] [facility] Disclaimer Unless otherwise specified, all tissue is 10% NB formalin fixed and paraffin embedded. 08/13/2024 8:[address] [facility] Tissue Descending colon structure / Unknown 08/11/2024 08/12/2024 9:16 AM EDT Tissue specimen (specimen) Descending colon structure / Unknown 08/11/2024 08/12/2024 9:16 AM EDT us Carolann Fleming MD LAB PATHOLOGY ORDERABLES Final Result [facility] [address] [place] [address], documented in this encounter Visit Diagnoses Diagnosis Encounter for screening for malignant neoplasm of colon documented in this encounter Care Teams Lunchroom Worker Relationship Specialty Start Date End Date Tatyana Marino MD [address] [place] [address] PCP - General 06/01/09 documented as of this encounter
== END 2025-01-26 10:10 | disposition home or self-care (01) ==
LOC: HO.CT 10:09
PROVIDERS: PCP Internal Medicine; Visit Provider Physician Assistant Medical
DX: Z12.2 Encounter for screening for malignant neoplasm of respiratory organs (principal); F17.210 Nicotine dependence, cigarettes, uncomplicated
CPT/HCPCS: 71271

== ENCOUNTER → 2025-01-26 10:15 | Outpatient (BNV) | payer MEDICARE, MEDICAID, SELFPAY | PROVIDERS: PCP Internal Medicine; Visit Provider Radiology Diagnostic Radiology | DX: F17.210 Nicotine dependence, cigarettes, uncomplicated (principal) | CPT/HCPCS: 71271 ==